=== PATIENT | female | born 1990 | race African-American/Black ===

== ENCOUNTER 2019-07-17 15:28 | Emergency (ER) | payer SELFPAY ==
[~2019-07-17] VITALS: Ht 165.1 cm; Wt 70.0 kg
[2019-07-17] MEDS ORDERED: IBUPROFEN 800MG TABLET PO ONE (17:00)
[2019-07-17] MEDS ORDERED: ACETAMINOPHEN 500MG TABLET PO ONE (17:00)
[2019-07-17 18:02] VITALS: BP 132/89
== END 2019-07-17 18:02 | disposition home or self-care (01) ==
LOC: ER 15:28
DX: R51 Headache (principal); F15.10 Other stimulant abuse, uncomplicated
CPT/HCPCS: 99283